=== PATIENT | female | born 1945 ===

== ENCOUNTER 2022-05-16 21:14 | Inpatient (IN) | payer MEDICARE, OTHER ==
[2022-05-16] MEDS ORDERED: LORazepam 2 MG/ML INJ IM PRN (21:44)
[2022-05-16] MEDS ORDERED: LORazepam 1 MG TAB PO PRN (21:44)
[2022-05-16] MEDS ORDERED: MAGNESIUM HYDROXIDE 2,400 MG/10 ML CUP PO PRN (21:44)
[2022-05-16] MEDS ORDERED: MAG HYDROX/AL HYDROX/SIMETH 30 ML CUP PO PRN (21:44)
[2022-05-16] MEDS ORDERED: ACETAMINOPHEN TAB 325 MG TAB PO PRN (21:44)
[2022-05-16] MEDS ORDERED: HALOPERIDOL LACTATE 5 MG/ML 1 ML VIAL IM PRN (21:44)
[2022-05-16] MEDS ORDERED: haloperidoL 1 MG TAB PO PRN (21:44)
[2022-05-17 07:44] LABS: Glucose,Whole Blood 126 mg/dL (70-110)
[2022-05-17] MEDS: INSULIN ASPART (NovoLOG) 100 UNIT/ML VIAL SQ SCH ×4 (07:55→20:28)
[2022-05-17] MEDS: CHOLECALCIFEROL 25 MCG (1000 IU) TABLET PO SCH (08:49)
[2022-05-17] MEDS: amLODIPine 10 MG TAB PO SCH (08:49)
[2022-05-17] MEDS: ASCORBIC ACID 500 MG TAB PO SCH ×2 (08:49→20:27)
[2022-05-17] MEDS: lisinopriL 10 MG TAB PO SCH (08:49)
[2022-05-17] MEDS: PANTOPRAZOLE 40 MG TABLET PO SCH (08:49)
[2022-05-17] MEDS: DULoxetine HCL 20 MG CAPSULE.DR PO SCH (09:43)
[2022-05-17] MEDS: CLOPIDOGREL 75 MG TAB PO SCH (09:44)
[2022-05-17] MEDS: FLUTICASONE 50MCG/SPRAY NASAL 16GM EA NOSTRIL SCH (09:44)
[2022-05-17] MEDS: carvediloL 12.5 MG TAB PO SCH ×2 (09:44→20:27)
[2022-05-17] MEDS: polyethylene glycoL 3350 17 GM POWD.PACK PO SCH (09:48)
[2022-05-17 10:11] LABS: ALT 16 U/L (4-34); AST 21 U/L (14-36); African American GFR (CKD) 40 (>60 ml/min/1.73 sqM); Albumin 3.8 g/dL (3.5-5.0); Alkaline Phosphatase 45 U/L (38-126); Anion Gap 12 mmol/L; Bilirubin, Delta 0.3 mg/dL (0.0-0.2); Blood Urea Nitrogen 43 mg/dL (7-17); Calcium 8.9 mg/dL (8.4-10.2); Carbon Dioxide 24 mmol/L (22-30); Chloride 103 mmol/L (98-107); Glucose 277 mg/dL (74-99); Non-African American GFR(CKD) 35 (>60 ml/min/1.73 sqM); Potassium 5.1 mmol/L (3.5-5.1); Sodium 139 mmol/L (137-145); Total Bilirubin 0.3 mg/dL (0.2-1.3); Total Protein 6.3 g/dL (6.3-8.2)
[2022-05-17 10:13] LABS: Basophils % (A) 1 %; Eosinophils # (A) 0.2 k/uL (0-0.7); Eosinophils % (A) 5 %; HCT 35.5 % (34.0-46.0); HGB 10.9 gm/dL (11.4-16.0); Hypochromasia Marked; Lymphocytes # (A) 1.5 k/uL (1.0-4.8); Lymphocytes % (A) 34 %; MCH 27.5 pg (25.0-35.0); MCHC 30.7 g/dL (31.0-37.0); MCV 89.7 fL (80.0-100.0); Mean Platelet Volume 7.8; Monocytes # (A) 0.2 k/uL (0-1.0); Monocytes % (A) 5 %; Neutrophils # (A) 2.3 k/uL (1.3-7.7); Neutrophils % (A) 53 %; Platelet Count 252 k/uL (150-450); RBC 3.96 m/uL (3.80-5.40); RDW 15.1 % (11.5-15.5); WBC 4.3 k/uL (3.8-10.6)
[2022-05-17] MEDS: FUROSEMIDE 40 MG TAB PO SCH (10:16)
[2022-05-17] MEDS: FENOFIBRATE 160 MG TAB PO SCH (10:16)
[2022-05-17 12:46] LABS: Glucose,Whole Blood 242 mg/dL (70-110)
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
--- NOTE | 2022-05-17 16:34 | P.CONS ---
History of Present Illness - Reason for Consult Consult date: 05/17/22 - History of Present Illness Patient is a 77-year-old female with past medical history of CAD, hypertension, dyslipidemia and diabetes mellitus that is transferred for Tori Alejandra for behavioral disturbances. She has been admitted to mental health unit for further management of symptoms. [facility] has been consulted for medical management of this patient. Patient currently denies any symptoms. She denies any headache, lower extremity edema, nausea or vomiting, fever or chills, cough, chest pain, shortness of breath, palpitations, changes in urination or bowel habits. No changes in appetite or weight. She denies any dizziness, numbness/weakness/tingling of the extremities. Review of systems is performed and is negative except above. Her vital signs are stable. General: non toxic, no distress, appears at stated age, obese Derm: warm, dry Head: atraumatic, normocephalic, symmetric Eyes: EOMI, no lid lag, anicteric sclera Mouth: no lip lesion, mucus membranes moist Cardiovascular: S1S2 reg, no murmur, positive posterior tibial pulse bilateral, Lungs: CTA bilateral, no rhonchi, no rales , no accessory muscle use Abdominal: soft, nontender to palpation, no guarding, no appreciable organome jessika Ext: no gross muscle atrophy, no edema, no contractures Neuro: CN II-XI grossly intact, no focal neuro deficits Psych: Alert, oriented, appropriate affect #CAD #Hypertension #Dyslipidemia #Diabetes mellitus #Obesity Patient will be restarted on Plavix, Lipitor and Coreg. Unsure why patient is not on aspirin. Will defer to PCP. Continue Coreg, amlodipine, lisinopril and Lasix. Monitor vitals, adjust medications as necessary. Continue fenofibrate and Lipitor. Start low-dose insulin sliding scale with Accu-Cheks 4 times a day and hypoglycemic precautions. Patient will benefit from a structured weight loss program. Thank you for this consultation. Please call [facility] with additional questions or concerns. Medications and Allergies Home Medications Medication Instructions Recorded Confirmed Type Ascorbic Acid [Vitamin C] 500 mg PO BID 05/16/22 05/16/22 History Atorvastatin [Lipitor] 40 mg PO HS 05/16/22 05/16/22 History Cholecalciferol [Vitamin D3 (25 25 mcg PO DAILY 05/16/22 05/16/22 History Mcg = 1000 Iu)] Clopidogrel [Plavix] 75 mg PO DAILY 05/16/22 05/16/22 History DULoxetine HCL 40 mg PO DAILY 05/16/22 05/16/22 History Fenofibrate [Lofibra] 160 mg PO DAILY 05/16/22 05/16/22 History Fluticasone Nasal [place] [Flonase 1 spray EA NOSTRIL DAILY 05/16/22 05/16/22 History Nasal [place]] Furosemide [Lasix] 40 mg PO DAILY 05/16/22 05/16/22 History Mirtazapine 15 mg PO HS 05/16/22 05/16/22 History OLANZapine [ZyPREXA] 2.5 mg PO HS 05/16/22 05/16/22 History Pantoprazole [Protonix] 40 mg PO DAILY 05/16/22 05/16/22 History amLODIPine [Norvasc] 10 mg PO DAILY 05/16/22 05/16/22 History carvediloL 25 mg PO BID 05/16/22 05/16/22 History lisinopriL [Zestril] 10 mg PO DAILY 05/16/22 05/16/22 History polyethylene glycoL 3350 17 gm PO DAILY 05/16/22 05/16/22 History [Polyethylene Glycol 3350] Allergies Allergy/AdvReac Type Severity Reaction Status Date / Time No Known Allergies Allergy Verified 05/16/22 21:26 Physical Exam Vitals: Vital Signs Temp Pulse Resp BP Pulse Ox 05/17/22 08:40 98.5 F 64 16 112/57 99 Results CBC & Chem 7: 05/17/22 09:21 05/17/22 09:21 Labs: Abnormal Lab Results - Last 24 Hours (Table) 05/17/22 05/17/22 05/17/22 Range/Units 07:42 09:21 09:21 Hgb 10.9 L (11.4-16.0) gm/dL MCHC 30.7 L (31.0-37.0) g/dL BUN (7-17) mg/dL Creatinine (0.52-1.04) mg/dL Glucose (74-99) mg/dL POC Glucose (mg/dL) 126 H (70-110) mg/dL Hemoglobin A1c 8.5 H (0.0-6.0) % Delta Bilirubin (0.0-0.2) mg/dL 05/17/22 05/17/22 Range/Units 09:21 12:44 Hgb (11.4-16.0) gm/dL MCHC (31.0-37.0) g/dL BUN 43 H (7-17) mg/dL Creatinine 1.46 H (0.52-1.04) mg/dL Glucose 277 H (74-99) mg/dL POC Glucose (mg/dL) 242 H (70-110) mg/dL Hemoglobin A1c (0.0-6.0) % Delta Bilirubin 0.3 H (0.0-0.2) mg/dL
[2022-05-17 17:26] LABS: Chol/HDL Ratio 2.67 Ratio; LDL Cholesterol,Calculated 29.8 mg/dL (0.0-131.0)
[2022-05-17 17:43] LABS: Glucose,Whole Blood 150 mg/dL (70-110)
[2022-05-17 20:20] LABS: Glucose,Whole Blood 252 mg/dL (70-110)
[2022-05-17] MEDS: MIRTAZAPINE 15 MG TAB PO SCH (20:27)
[2022-05-17] MEDS: OLANZapine 2.5 MG TAB PO SCH (20:27)
[2022-05-17] MEDS: ATORVASTATIN 40 MG TAB PO SCH (20:27)
[2022-05-18 07:54] LABS: Glucose,Whole Blood 196 mg/dL (70-110)
[2022-05-18] MEDS: INSULIN ASPART (NovoLOG) 100 UNIT/ML VIAL SQ SCH ×4 (08:36→20:10)
[2022-05-18] MEDS: polyethylene glycoL 3350 17 GM POWD.PACK PO SCH (08:37)
[2022-05-18] MEDS: FLUTICASONE 50MCG/SPRAY NASAL 16GM EA NOSTRIL SCH (08:37)
[2022-05-18] MEDS: CLOPIDOGREL 75 MG TAB PO SCH (08:38)
[2022-05-18] MEDS: CHOLECALCIFEROL 25 MCG (1000 IU) TABLET PO SCH (08:38)
[2022-05-18] MEDS: PANTOPRAZOLE 40 MG TABLET PO SCH (08:38)
[2022-05-18] MEDS: ASCORBIC ACID 500 MG TAB PO SCH ×2 (08:38→20:10)
[2022-05-18] MEDS: DULoxetine HCL 20 MG CAPSULE.DR PO SCH (08:38)
[2022-05-18] MEDS: carvediloL 12.5 MG TAB PO SCH ×2 (08:39→20:10)
[2022-05-18] MEDS: FENOFIBRATE 160 MG TAB PO SCH (08:40)
[2022-05-18] MEDS: amLODIPine 10 MG TAB PO SCH (08:40)
[2022-05-18] MEDS: lisinopriL 10 MG TAB PO SCH (08:40)
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
[2022-05-18 12:48] LABS: Glucose,Whole Blood 239 mg/dL (70-110)
[2022-05-18 17:50] LABS: Glucose,Whole Blood 335 mg/dL (70-110)
[2022-05-18 20:03] LABS: Glucose,Whole Blood 267 mg/dL (70-110)
[2022-05-18] MEDS: ATORVASTATIN 40 MG TAB PO SCH (20:10)
[2022-05-18] MEDS: MIRTAZAPINE 15 MG TAB PO SCH (20:10)
[2022-05-18] MEDS: OLANZapine 2.5 MG TAB PO SCH (20:11)
[2022-05-19 07:19] VITALS: BP 143/66; PULSE 66; RESP 16; TEMP 97.8
[2022-05-19 07:22] LABS: Glucose,Whole Blood 209 mg/dL (70-110)
[2022-05-19] MEDS: PANTOPRAZOLE 40 MG TABLET PO SCH (08:04)
[2022-05-19] MEDS: CHOLECALCIFEROL 25 MCG (1000 IU) TABLET PO SCH (08:04)
[2022-05-19] MEDS: carvediloL 12.5 MG TAB PO SCH (08:05)
[2022-05-19] MEDS: amLODIPine 10 MG TAB PO SCH (08:05)
[2022-05-19] MEDS: lisinopriL 10 MG TAB PO SCH (08:05)
[2022-05-19] MEDS: ASCORBIC ACID 500 MG TAB PO SCH (08:05)
[2022-05-19] MEDS: INSULIN ASPART (NovoLOG) 100 UNIT/ML VIAL SQ SCH (08:09)
[2022-05-19] MEDS: polyethylene glycoL 3350 17 GM POWD.PACK PO SCH (09:08)
[2022-05-19] MEDS: CLOPIDOGREL 75 MG TAB PO SCH (09:08)
[2022-05-19] MEDS: FENOFIBRATE 160 MG TAB PO SCH (09:08)
[2022-05-19] MEDS: DULoxetine HCL 20 MG CAPSULE.DR PO SCH (09:08)
[2022-05-19] MEDS: FLUTICASONE 50MCG/SPRAY NASAL 16GM EA NOSTRIL SCH (09:08)
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
[2022-05-21] MEDS ORDERED: FUROSEMIDE 40 MG TAB PO SCH (09:00)
== END 2022-05-19 12:05 | disposition home or self-care (01) | DRG 881 ==
LOC: 3MHU 05-17 02:39
PROVIDERS: ADMIT Psychiatry & Neurology Psychiatry; ATTEND Psychiatry & Neurology Psychiatry
DX: F32.A Depression, unspecified (principal); R45.851 Suicidal ideations; I25.10 Atherosclerotic heart disease of native coronary artery without angina pectoris; E11.9 Type 2 diabetes mellitus without complications; E78.5 Hyperlipidemia, unspecified; F03.90 Unspecified dementia, unspecified severity, without behavioral disturbance, psychotic disturbance, mood disturbance, and anxiety; F41.9 Anxiety disorder, unspecified; G47.00 Insomnia, unspecified; I10 Essential (primary) hypertension; Z79.02 Long term (current) use of antithrombotics/antiplatelets; Z79.899 Other long term (current) drug therapy; Z79.4 Long term (current) use of insulin
CPT/HCPCS: 80053; 80061; 82248; 83036; 84443; 85025